=== PATIENT | female | born 1965 | race Caucasian/White ===

== ENCOUNTER → 2019-09-20 10:20 | Outpatient (CLI) | payer OTHER, SELFPAY ==
--- NOTE | 2019-09-20 | DI.MG.S_ITS ---
BILATERAL DIGITAL SCREENING MAMMOGRAM 3D/2D WITH CAD: 09/20/2019 CLINICAL: Routine screening. Family history of breast cancer. Comparison is made to exams dated: 05/23/2017 mammogram, 04/01/2016 mammogram, and 12/10/2015 mammogram - [facility]. There are scattered fibroglandular elements in both breasts. Current study was also evaluated with a Computer Aided Detection (CAD) system. There is a possible developing 0.7 cm oval asymmetry in the right breast middle depth central to the nipple seen on the mediolateral oblique view only. No other significant masses, calcifications, or other findings are seen in either breast. IMPRESSION: INCOMPLETE: NEEDS ADDITIONAL IMAGING EVALUATION The possible developing 0.7 cm oval asymmetry in the right breast is indeterminate. Additional views with possible ultrasound are recommended. This exam was interpreted at Station ID: [id number]. NOTE: For mammograms, a report in lay terms will be sent to the patient. Approximately 15% of breast malignancies will not be visualized mammographically. In the management of a palpable breast mass, a negative mammogram must not discourage biopsy of a clinically suspicious lesion. Electronically Signed By: Jerry Licona M.D. aty/:09/20/2019 12:53:17 letter sent: Additional Imaging Needed ACR BI-RADS Category 0: Incomplete 3340F
== END ==
PROVIDERS: PCP Family Medicine; Visit Provider Family Medicine
DX: Z12.31 Encounter for screening mammogram for malignant neoplasm of breast (principal); Z80.3 Family history of malignant neoplasm of breast
CPT/HCPCS: 77063; 77067

== ENCOUNTER → 2019-10-24 13:46 | Outpatient (CLI) | payer OTHER, SELFPAY ==
--- NOTE | 2019-10-24 | DI.MG.S_ITS ---
UNILATERAL RIGHT DIGITAL DIAGNOSTIC MAMMOGRAM 3D/2D WITH ADDITIONAL VIEWS: 10/24/2019 CLINICAL: Additional evaluation requested from prior study. Comparison is made to exams dated: 09/20/2019 mammogram, 05/23/2017 mammogram, and 04/01/2016 mammogram - Located [facility]. There are scattered fibroglandular elements in right breast. Previously noted 0.7 cm oval asymmetry in the right breast middle depth central to the nipple seen on the mediolateral oblique view onlyon comparison screening mammogram of 09/20/19 is less prominent on additional views, and may represent superimposed dense fibroglandular tissue. IMPRESSION: INCOMPLETE: NEEDS ADDITIONAL IMAGING EVALUATION Previously noted 0.7 cm oval asymmetry in the right breast middle depth central to the nipple seen on the mediolateral oblique view onlyon comparison screening mammogram of 09/20/19 is less prominent on additional views. A targeted ultrasound is recommended and will be performed immediately following this exam. This exam was interpreted at Station ID: [id number]. NOTE: For mammograms, a report in lay terms will be sent to the patient. Approximately 15% of breast malignancies will not be visualized mammographically. In the management of a palpable breast mass, a negative mammogram must not discourage biopsy of a clinically suspicious lesion. Electronically Signed By: Donald Siegel M.D. ecl/:10/24/2019 14:40:38 ACR BI-RADS Category 0: Incomplete 3340F
--- NOTE | 2019-10-24 | DI.US.S_ITS ---
LIMITED ULTRASOUND OF RIGHT BREAST AND AXILLA: 10/24/2019 CLINICAL: Patient returns today to evaluate an asymmetry in the right breast. Comparison is made to exams dated: 10/24/2019 mammogram, 09/20/2019 mammogram, 05/23/2017 ultrasound, 05/23/2017 mammogram, 04/01/2016 ultrasound, and 04/01/2016 mammogram - [facility]. Color flow ultrasound of the right breast 9-3 o'clock, retroareolar, and axilla regions was performed. Larson scale images of the real-time examination were reviewed. There is a 0.6 x 0.4 x 0.3 cm oval indistinct hypoechoic probable complicated cyst with increased through transmission/posterior acoustic enhancement, and no vascularity on Doppler ultrasound located in the right breast at 11:30 position 7 cm from the nipple. There is a 0.2 x 0.2 x 0.2 cm oval indistinct hypoechoic probable complicated cyst with increased through transmission/posterior acoustic enhancement, and no vascularity on Doppler ultrasound located in the right breast at 11:00 position 4 cm from the nipple. Targeted ultrasound of the right axillary demonstrates benign-appearing lymph nodes with no suspicious cortical thickening and preserved fatty concepcion. There is no evidence of right axillary lymphadenopathy by ultrasound. IMPRESSION: PROBABLY BENIGN 1) 0.6 x 0.4 x 0.3 cm probable complicated cyst in the right breast at 11:30 position 7 cm from the nipple. 2) 0.2 x 0.2 x 0.2 cm probable complicated cyst in the right breast at 11:00 position 4 cm from the nipple. 3) A follow-up mammogram and an ultrasound in 6 months is recommended to demonstrate stability of mammographic and sonographic findings. The patient is advised to monitor her breasts and to return sooner for re-evaluation should she feel anything grow or change. This exam was interpreted at Station ID: [id number]. Electronically Signed By: Donald Siegel M.D. ecl/:10/24/2019 15:24:18 letter sent: Followup Recommended Ultrasound BI-RADS: 3 Probably benign
== END ==
PROVIDERS: PCP Family Medicine; Visit Provider Family Medicine
DX: R92.8 Other abnormal and inconclusive findings on diagnostic imaging of breast (principal); N64.89 Other specified disorders of breast
CPT/HCPCS: 76642; 77065; G0279

== ENCOUNTER → 2020-09-07 11:58 | Outpatient (CLI) | payer OTHER, SELFPAY ==
--- NOTE | 2020-09-07 | DI.MG.S_ITS ---
BILATERAL DIGITAL DIAGNOSTIC MAMMOGRAM 3D/2D: 09/07/2020 CLINICAL: Late short follow up. Comparison is made to exams dated: 10/24/2019 ultrasound, 10/24/2019 mammogram, 09/20/2019 mammogram, 05/23/2017 ultrasound, 05/23/2017 ultrasound, and 05/23/2017 mammogram - [facility]. There are scattered fibroglandular elements in both breasts. Previously noted 0.7 cm oval asymmetry in the right breast middle depth central to the nipple seen on the mediolateral oblique view onlyon comparison screening mammogram of 09/20/19 is less prominent on additional views, and may represent superimposed dense fibroglandular tissue. No other significant masses, calcifications, or other findings are seen in either breast. IMPRESSION: BENIGN Previously noted 0.7 cm oval asymmetry in the right breast middle depth central to the nipple seen on the mediolateral oblique view onlyon comparison screening mammogram of 09/20/19 is less prominent on additional views. There is no mammographic evidence of malignancy. Return to annual mammogram screening schedule is recommended. This exam was interpreted at Station ID: [id number]. NOTE: For mammograms, a report in lay terms will be sent to the patient. Approximately 15% of breast malignancies will not be visualized mammographically. In the management of a palpable breast mass, a negative mammogram must not discourage biopsy of a clinically suspicious lesion. Electronically Signed By: Gato Isaac acr/:09/07/2020 13:18:07 letter sent: Normal Exam ACR BI-RADS Category 2: Benign Finding(s) 3342F
== END ==
PROVIDERS: PCP Family Medicine; Referring Provider Family Medicine; Visit Provider Family Medicine
DX: R92.8 Other abnormal and inconclusive findings on diagnostic imaging of breast (principal)
CPT/HCPCS: 77066; G0279

== ENCOUNTER → 2021-03-04 08:34 | Outpatient (CLI) | payer OTHER, SELFPAY ==
[2021-03-04 21:08] LABS: Hemoglobin A1C% w Est Avg Glu 8.7 % (4.0-6.0)
== END ==
PROVIDERS: PCP Family Medicine; Visit Provider Family Medicine
DX: E11.65 Type 2 diabetes mellitus with hyperglycemia (principal); Z97.4 Presence of external hearing-aid; I10 Essential (primary) hypertension
CPT/HCPCS: 83036

== ENCOUNTER → 2021-12-01 08:21 | Outpatient (CLI) | payer OTHER, SELFPAY ==
[2021-12-01 19:21] LABS: Add Manual Diff / Slide Review NO; Basophils Absolute Auto 100 /uL (0-100); Basophils Percent Auto 0.7 % (0-2); Eosinophils Absolute Auto 300 /uL (0-450); Eosinophils Percent Auto 3.3 % (2-4); Lymphocytes Absolute Auto 1900 /uL (1100-4500); Lymphocytes Percent Auto 23.1 % (25-40); Mean Corpuscular HGB Conc 33.4 % (30-36); Mean Corpuscular Hemoglobin 28.3 PG (26-34); Mean Corpuscular Volume 84.7 fL (80-100); Monocytes Absolute Auto 800 /uL (0-900); Monocytes Percent Auto 9.1 % (3-14); Neutrophils Absolute Auto 5300 /uL (1500-7000); Neutrophils Percent Auto 63.8 % (50-75); Platelet Count 346 X10^3/uL (150-400); Red Cell Distribution Width 12.8 % (11.6-14.8); White Blood Cell Count 8.3 X10^3/uL (4.5-11.0)
[2021-12-01 19:36] LABS: Alanine Aminotransferase 31 IU/L (<35); Albumin Globulin Ratio 1.5 (1.0-2.8); Alkaline Phosphatase 107 U/L (38-126); Aspartate Aminotransferase 24 IU/L (14-36); BUN Creatinine Ratio 16.3 (6-22); Bilirubin Total 0.5 mg/dL (0.2-1.3); Blood Urea Nitrogen 13 mg/dL (7-17); Calcium 9.5 mg/dL (8.4-10.2); Carbon Dioxide 30 mmol/L (22-32); Chloride 104 mmol/L (98-107); Cholesterol 167 mg/dL (140-199); Estimated Glomerular Filt Rate > 60.0 mL/min (>60); Globulin 2.6 g/dL (1.7-4.1); Glucose 137 mg/dL (70-100); HDL Cholesterol 44 mg/dL (40-60); HEMOLYSIS < 15 (0-50); LDL Cholesterol Calculated 83 mg/dL (<100); Potassium 4.7 mmol/L (3.4-5.1); Sodium 140 mmol/L (137-145); Total Protein 6.6 g/dL (6.3-8.2); Triglycerides 199 mg/dL (35-150)
[2021-12-01 19:39] LABS: Hemoglobin A1C% w Est Avg Glu 10.9 % (4.0-6.0)
[2021-12-01 20:06] LABS: TSH w/ Reflex to FT4 3.54 uIU/mL (0.47-4.68)
[2021-12-03 09:01] LABS: Cholesterol, Total 167 mg/dL (100-199); HDL-Cholesterol 44 mg/dL (>39); HDL-Particle (Total) 29.3 umol/L (>=30.5); LDL Particle 1182 nmol/L (<1000); LDL Size 20.2 nm (>20.5); LDL-Cholsterol 91 mg/dL (0-99); LP-IR Score 75 (<=45); Small LDL- Particle 750 nmol/L (<=527); Triglycerides 188 mg/dL (0-149)
== END ==
PROVIDERS: Internal Medicine Cardiovascular Disease; PCP Physician Assistant; Visit Provider Physician Assistant
DX: E11.9 Type 2 diabetes mellitus without complications (principal); E78.01 Familial hypercholesterolemia; I25.2 Old myocardial infarction; R53.83 Other fatigue; Z79.4 Long term (current) use of insulin; E78.2 Mixed hyperlipidemia
CPT/HCPCS: 80053; 80061; 83036; 83704; 84443; 85025

== ENCOUNTER → 2022-03-03 08:55 | Outpatient (CLI) | payer OTHER, SELFPAY | PROVIDERS: PCP Physician Assistant; Visit Provider Physician Assistant | DX: E11.9 Type 2 diabetes mellitus without complications (principal); Z79.4 Long term (current) use of insulin | CPT/HCPCS: 83036 ==

== ENCOUNTER → 2022-05-25 10:27 | Outpatient (CLI) | payer OTHER, SELFPAY ==
--- NOTE | 2022-05-25 10:28 | DI.MG.S_ITS ---
BILATERAL DIGITAL SCREENING MAMMOGRAM 3D/2D WITH CAD: 05/25/2022 CLINICAL: Routine screening. Family history of breast cancer. Comparison is made to exams dated: 09/07/2020 mammogram, 09/20/2019 mammogram, and 12/10/2015 mammogram - [facility]. There are scattered fibroglandular elements in both breasts. Current study was also evaluated with a Computer Aided Detection (CAD) system. No significant masses, calcifications, or other findings are seen in either breast. There has been no significant interval change. IMPRESSION: NEGATIVE There is no mammographic evidence of malignancy. A 1 year screening mammogram is recommended. Based on the Tyrer Cuzick model (a risk assessment model) the patient's lifetime risk is 9.3% and her 10 year risk is 3.0%. According to the ACR, ACS, and NCCN guidelines, an annual breast MRI exam along with mammogram is recommended if the patient's lifetime risk is 20% or greater. This exam was interpreted at Station ID: [id number]. NOTE: For mammograms, a report in lay terms will be sent to the patient. Approximately 15% of breast malignancies will not be visualized mammographically. In the management of a palpable breast mass, a negative mammogram must not discourage biopsy of a clinically suspicious lesion. Electronically Signed By: José ryder/seven:05/25/2022 12:45:33 letter sent: Normal Exam ACR BI-RADS Category 1: Negative 3341F
== END ==
PROVIDERS: PCP Physician Assistant; Referring Provider Physician Assistant; Visit Provider Physician Assistant
DX: Z12.31 Encounter for screening mammogram for malignant neoplasm of breast (principal); Z80.3 Family history of malignant neoplasm of breast
CPT/HCPCS: 77063; 77067

== ENCOUNTER → 2022-07-05 15:04 | Outpatient (CLI) | payer OTHER, SELFPAY ==
[2022-07-05 20:04] LABS: Hemoglobin A1C% w Est Avg Glu 6.4 % (4.0-6.0)
== END ==
PROVIDERS: Nurse Practitioner Adult Health; PCP Physician Assistant; Visit Provider Physician Assistant
DX: E11.9 Type 2 diabetes mellitus without complications (principal); Z79.4 Long term (current) use of insulin; B37.3 Candidiasis of vulva and vagina
CPT/HCPCS: 83036; 87798; 87801

== ENCOUNTER → 2022-09-19 13:04 | Outpatient (CLI) | payer OTHER, SELFPAY ==
[2022-09-19 19:29] LABS: Add Manual Diff / Slide Review NO; Basophils Absolute Auto 100 /uL (0-100); Basophils Percent Auto 1.4 % (0-2); Eosinophils Absolute Auto 200 /uL (0-450); Eosinophils Percent Auto 3.3 % (2-4); Hematocrit 37.5 % (36-46); Hemoglobin 12.8 g/dL (12.0-16.0); Lymphocytes Absolute Auto 1700 /uL (1100-4500); Lymphocytes Percent Auto 29.7 % (25-40); Mean Corpuscular HGB Conc 34.3 % (30-36); Mean Corpuscular Hemoglobin 29.2 PG (26-34); Mean Corpuscular Volume 85.2 fL (80-100); Monocytes Absolute Auto 800 /uL (0-900); Monocytes Percent Auto 13.7 % (3-14); Neutrophils Absolute Auto 2900 /uL (1500-7000); Neutrophils Percent Auto 51.9 % (50-75); Platelet Count 319 X10^3/uL (150-400); Red Cell Distribution Width 12.8 % (11.6-14.8); White Blood Cell Count 5.7 X10^3/uL (4.5-11.0)
[2022-09-19 19:33] LABS: Alanine Aminotransferase 36 IU/L (<35); Albumin Globulin Ratio 1.4 (1.0-2.8); Alkaline Phosphatase 121 U/L (38-126); Aspartate Aminotransferase 21 IU/L (14-36); BUN Creatinine Ratio 18.8 (6-22); Bilirubin Total 0.3 mg/dL (0.2-1.3); Blood Urea Nitrogen 15 mg/dL (7-17); Carbon Dioxide 28 mmol/L (22-32); Chloride 101 mmol/L (98-107); Estimated Glomerular Filt Rate > 60 mL/min (>60); Globulin 2.9 g/dL (1.7-4.1); Glucose 173 mg/dL (70-100); HEMOLYSIS < 15 (0-50); Potassium 4.2 mmol/L (3.4-5.1); Sodium 140 mmol/L (137-145); Total Protein 6.9 g/dL (6.3-8.2)
[2022-09-19 20:05] LABS: Hemoglobin A1C% w Est Avg Glu 6.7 % (4.0-6.0)
[2022-09-19 20:24] LABS: Vitamin B12 257 pg/mL (239-931)
== END ==
PROVIDERS: PCP Physician Assistant; Visit Provider Physician Assistant
DX: R20.2 Paresthesia of skin (principal); M54.50 Low back pain, unspecified
CPT/HCPCS: 80053; 82607; 83036; 85025

== ENCOUNTER → 2023-02-16 14:28 | Outpatient (CLI) | payer OTHER, SELFPAY ==
[2023-02-16 20:10] LABS: Add Manual Diff / Slide Review NO; Basophils Absolute Auto 100 /uL (0-100); Basophils Percent Auto 0.9 % (0-2); Eosinophils Absolute Auto 200 /uL (0-450); Eosinophils Percent Auto 2.9 % (2-4); Hemoglobin 13.5 g/dL (12.0-16.0); Lymphocytes Absolute Auto 1900 /uL (1100-4500); Mean Corpuscular HGB Conc 34.6 % (30-36); Mean Corpuscular Hemoglobin 29.4 PG (26-34); Mean Corpuscular Volume 84.8 fL (80-100); Monocytes Absolute Auto 800 /uL (0-900); Monocytes Percent Auto 9.5 % (3-14); Neutrophils Absolute Auto 5600 /uL (1500-7000); Neutrophils Percent Auto 64.7 % (50-75); Platelet Count 349 X10^3/uL (150-400); Red Cell Distribution Width 12.7 % (11.6-14.8); White Blood Cell Count 8.7 X10^3/uL (4.5-11.0)
[2023-02-16 20:20] LABS: Alanine Aminotransferase 30 IU/L (<35); Albumin 4.3 g/dL (3.5-5.0); Albumin Globulin Ratio 1.5 (1.0-2.8); Alkaline Phosphatase 116 U/L (38-126); Aspartate Aminotransferase 20 IU/L (14-36); Bilirubin Total 0.4 mg/dL (0.2-1.3); Blood Urea Nitrogen 18 mg/dL (7-17); Calcium 9.2 mg/dL (8.4-10.2); Carbon Dioxide 29 mmol/L (22-32); Chloride 102 mmol/L (98-107); Estimated Glomerular Filt Rate > 60 mL/min (>60); Globulin 2.8 g/dL (1.7-4.1); Glucose 152 mg/dL (70-100); HEMOLYSIS < 15 (0-50); Lipase 135 U/L (23-300); Potassium 4.8 mmol/L (3.4-5.1); Sodium 139 mmol/L (137-145); Total Protein 7.1 g/dL (6.3-8.2)
== END ==
PROVIDERS: PCP Physician Assistant; Visit Provider Physician Assistant
DX: E11.9 Type 2 diabetes mellitus without complications (principal); F32.9 Major depressive disorder, single episode, unspecified; R10.9 Unspecified abdominal pain
CPT/HCPCS: 80053; 83690; 85025

== ENCOUNTER 2023-03-01 14:56 | Emergency (ER) | payer OTHER, SELFPAY ==
[2023-03-01 15:15] VITALS: BP 137/78; PULSE 86; RESP 18; TEMP 36.6; O2SAT 98; BMI 43.9
--- NOTE | 2023-03-01 16:33 | ED_ITS ---
HPI - Eye Problem <Aldo Walker PA-C - Last Filed: 03/01/23 18:55> General Chief complaint: Eye Problems Stated complaint: eye dr ref/rt eye problems wants corotid checked Time Seen by Provider: 03/01/23 15:29 Source: patient Mode of arrival: Ambulatory History of Present Illness HPI Narrative: This is a 58-year-old female presents emergency department due to her eye doctor being concerned that her carotid artery maybe occluded causing her visual issues. She reports having little white dots and lytes tracking across the right side of the right eye visual field. Patient states that this is happened for the last week or so. She states that she has these episodes 5 to 7 times a day. No changes in her vision. Denies any eye pain or discharge or any fevers. Patient states that this is not happened in the has. She does have a history of diabetes, hyperlipidemia as well as a ?heart attack? about 20 years ago where she has 2 stents placed. Takes a baby aspirin daily as well as a statin. Related Data Home Medications Medication Instructions Recorded Confirmed atorvastatin 80 mg tablet 80 mg PO BEDTIME 02/03/21 01/10/23 aspirin 81 mg tablet,delayed 81 mg PO DAILY 01/10/23 01/10/23 release insulin glargine 100 unit/mL (3 See Rx Instructions .Route .COMPLEX 01/10/23 01/10/23 mL) subcutaneous pen (Basaglar KwikPen U-100 Insulin) Previous Rx's Medication Instructions Recorded albuterol sulfate 90 mcg/actuation 2 puff inhalation QID PRN 08/20/21 aerosol inhaler shortness of breath or wheezing #8.5 grams lancets (Microlet Lancet) #300 ea 12/29/21 blood sugar diagnostic (Contour #300 ea 01/11/22 Next Test Strips) pen needle, diabetic 31 gauge x #300 ea 05/06/22 3/16 (Sure-Fine Pen [place]) montelukast 10 mg tablet See Rx Instructions .Route 09/06/22 .COMPLEX #90 tabs semaglutide 1 mg/dose (4 mg/3 mL) 1 mg (0.75 mL) SUBCUT QWEEK #3 mL 11/30/22 subcutaneous pen injector (Ozempic) lisinopril 2.5 mg tablet See Rx Instructions .Route 12/06/22 .COMPLEX #30 tabs oxybutynin chloride 5 mg See Rx Instructions .Route 12/06/22 tablet,extended release 24 hr .COMPLEX #30 tabs bupropion HCl 150 mg 24 hr tablet, 150 mg PO QAM #30 tabs 01/10/23 extended release (Wellbutrin XL) bupropion HCl 300 mg 24 hr tablet, 300 mg PO QAM #30 tabs 01/10/23 extended release (Wellbutrin XL) semaglutide 2 mg/dose (8 mg/3 mL) 2 mg (0.75 mL) SUBCUT QWEEK #3 mL 01/10/23 subcutaneous pen injector (Ozempic) Allergies Allergy/AdvReac Type Severity Reaction Status Date / Time No Known Drug Allergies Allergy Verified 09/06/22 16:05 Review of Systems <Aldo Walker PA-C - Last Filed: 03/01/23 18:55> Review of Systems Narrative: GENERAL: Denies chills, fatigue, malaise, fever, sweats. HEENT: Visual changes, Denies sinus pain, ear pain, sore throat, difficulty swallowing, dizziness. RESPIRATORY: Denies dyspnea, cough, wheezing, hemoptysis, sputum. CARDIOVASCULAR: Denies chest pain, palpitations, orthopnea, edema, GASTROINTESTINAL: Denies nausea, vomiting, abdominal pain, diarrhea, cons tipation, melena. : Denies dysuria, frequency, incontinence, hematuria, urinary retention. MUSCULOSKELETAL: denies weakness, joint pain, or bony pain SKIN: Denies rash, skin lesions, or other NEUROLOGIC: Denies weakness, headache, numbness, change in speech, confusion, seizures, incoordination. PSYCHIATRIC: No concerning psychosocial issues. 12 point review of systems is negative except for those stated above Patient History <Aldo Walker PA-C - Last Filed: 03/01/23 18:55> Medical History (Updated 03/01/23 @ 18:54 by Aldo Walker PA-C) Cervical cancer screening Encounter for screening for malignant neoplasm of colon Lymphadenopathy of left cervical region Old myocardial infarction Skin tag, acquired Superficial laceration of foot Wart viral Well woman exam with routine gynecological exam Social History marital status: unmarried,single details: adopted twins now 18 yo number of children: 2 lives independently: Yes education level: college occupational status: employed Previous occupational history: teacher on Smoking Status: Never smoker Smoking Status: Never smoker Substance Use Type: does not use Exam <Aldo Walker PA-C - Last Filed: 03/01/23 18:55> Narrative Exam Narrative: GENERAL: Well-developed patient, in mild distress. HEAD: Atraumatic. Normocephalic. EYES: Pupils equal round and reactive. Extraocular motions intact. No scleral icterus. No injection or drainage. Normal visual acuity exam. No changes in field of vision. ENT: Nose without bleeding, purulent drainage. Throat without erythema, tonsillar hypertrophy or exudate. Airway patent. NECK: Trachea midline. Non tender CARDIOVASCULAR: Regular rate and rhythm without murmurs, gallops, or rubs. RESPIRATORY: Clear to auscultation. Breath sounds equal bilaterally. No wheezes, rales, or rhonchi. GASTROINTESTINAL: Abdomen soft, non-tender, nondistended. EXTREMITIES: No edema or joint tenderness. BACK: Nontender without deformity or crepitance. No flank tenderness. NEURO: AOx3. Cranial nerves 2-12 intact SKIN: No rash or erythema of visible areas Initial Vital Signs Initial Vital Signs: Vital Signs Temperature 97.8 F 03/01/23 15:15 Pulse Rate 86 03/01/23 15:15 Respiratory Rate 18 03/01/23 15:15 Blood Pressure 137/78 03/01/23 15:15 Pulse Oximetry 98 03/01/23 15:15 Oxygen Delivery Method Room Air 03/01/23 15:15 <Vic Donato MD - Last Filed: 03/09/23 03:27> Initial Vital Signs Initial Vital Signs: Vital Signs Temperature 97.8 F 03/01/23 15:15 Pulse Rate 86 03/01/23 15:15 Respiratory Rate 18 03/01/23 15:15 Blood Pressure 137/78 03/01/23 15:15 Pulse Oximetry 98 03/01/23 15:15 Oxygen Delivery Method Room Air 03/01/23 15:15 Course <Aldo Walker PA-C - Last Filed: 03/01/23 18:55> Orders Ordered: ED Orders 03/01/23 16:58 CT angio head and neck Stat 03/01/23 17:11 CBC Auto Diff [Complete Blood Count AUTO DIFF] Stat CMP [Comprehensive Metabolic Panel] Stat Vital Signs Vital signs: Vital Signs - 8 hr 03/01/23 15:15 Temperature 97.8 F Pulse Rate 86 Respiratory Rate 18 Blood Pressure 137/78 Pulse Oximetry 98 Oxygen Delivery Method Room Air <Vic Donato MD - Last Filed: 03/09/23 03:27> Orders Ordered: ED Orders 03/01/23 16:58 CT angio head and neck Stat 03/01/23 17:11 CBC Auto Diff [Complete Blood Count AUTO DIFF] Stat CMP [Comprehensive Metabolic Panel] Stat Vital Signs Vital signs: Vital Signs - 8 hr 03/01/23 15:15 Temperature 97.8 F Pulse Rate 86 Respiratory Rate 18 Blood Pressure 137/78 Pulse Oximetry 98 Oxygen Delivery Method Room Air MDM - Eye Problem <Aldo Walker PA-C - Last Filed: 03/01/23 18:55> Lab Data 03/01/23 17:11 03/01/23 17:11 Labs: Lab Results 03/01/23 03/01/23 Range/Units 17:11 17:11 WBC 8.7 (4.5-11.0) X10^3/uL RBC 4.60 (4.0-5.2) X10^6/uL Hgb 13.4 (12.0-16.0) g/dL Hct 39.4 (36-46) % MCV 85.6 (80-100) fL MCH 29.1 (26-34) PG MCHC 34.1 (30-36) % RDW 12.7 (11.6-14.8) % Plt Count 343 (150-400) X10^3/uL Neut % (Auto) 64.9 (50-75) % Lymph % (Auto) 22.1 L (25-40) % [place] % (Auto) 9.8 (3-14) % Eos % (Auto) 2.1 (2-4) % Baso % (Auto) 1.1 (0-2) % Neut # (Auto) 5700 (6617-5824) /uL Lymph # (Auto) 1900 (8435-2879) /uL [place] # (Auto) 900 (0-900) /uL Eos # (Auto) 200 (0-450) /uL Baso # (Auto) 100 (0-100) /uL Sodium 137 (137-145) mmol/L Potassium 4.4 (3.4-5.1) mmol/L Chloride 101 (98-107) mmol/L Carbon Dioxide 31 (22-32) mmol/L BUN 15 (7-17) mg/dL Creatinine 0.91 (0.52-1.04) mg/dL Estimated GFR > 60 (>60) mL/min BUN/Creatinine Ratio 16.5 (6-22) Glucose 124 H (70-100) mg/dL Calcium 9.3 (8.4-10.2) mg/dL Total Bilirubin 0.7 (0.2-1.3) mg/dL AST 22 (14-36) IU/L ALT 32 (<35) IU/L Alkaline Phosphatase 135 H (38-126) U/L Total Protein 7.7 (6.3-8.2) g/dL Albumin 4.5 (3.5-5.0) g/dL Globulin 3.2 (1.7-4.1) g/dL Albumin/Globulin Ratio 1.4 (1.0-2.8) Imaging Data CTA - brain/neck: Radiologist's Impression: [address] [address] [address] Scan Report Signed Patient: Casi Martinez MR#: [id number] : 1965 Acct:[id number] Age/Sex: 58 / F Date of Service: 03/01/23 Loc: Accession Number: [id number] ?? Procedure: CT angio head and neck Ordering Provider: Aldo Walker P.A-C PROCEDURE:? CT ANGIO HEAD AND NECK ? INDICATIONS:? Flashing lights R visual field ? TECHNIQUE:? Pre-contrast 4.5 mm thick sections acquired from the foramen magnum to the vertex.? After the administration of intravenous contrast, 1 mm thick sections acquired from the aortic arch through the [place].? Post-contrast 4.5 mm thick sections then re- acquired from the foramen magnum to the vertex.? 3-dimensional yxwvomi-aktjwxehb-epabgxgjyl (MIP) and/or volume rendering reformats were acquired of the central intracranial vasculature and neck separately. For radiation dose reduction, the following was used:? automated exposure control, adjustment of mA and/or kV according to patient size.? ? COMPARISON:? None. ? FINDINGS:? Image quality:? Good ? CSF spaces: Basal cisterns are patent. Lateral ventricles are symmetric. Volume:? Vascular calcifications. Periventricular white matter disease is common ly seen with chronic microangiopathy. Volume loss is present. These findings are minimal ? Brain: No intracranial hemorrhage. Larson-white differentiation is grossly maintained. ? Craniofacial structures: No displaced fracture. Sinuses are clear. Orbits are intact. ? Anterior circulation: ICAs:? There are mild bilateral cavernous calcifications.? The proximal ophthalmic arteries are visible. ACAs: Normal and symmetric MCAs: Normal and symmetric AComm: No aneurysm Venous sinuses: patent ? Posterior circulation: Dominance: Equal Vertebral arteries:? Focal right intracranial vertebral artery moderate narrowing calcification. Basilar artery: Unremarkable PComms: No aneurysm stretching machine tender frame: Unremarkable ? NECK ANGIOGRAPHY Aortic arch and subclavian arteries: Normal flow, no aneurysm. CCAs: No stenosis, occlusion, or aneurysm. ICA origins (by NASCET criteria): No hemodynamically significant narrowing. ICAs:? No stenosis or occlusion.? Retropharyngeal course. ECAs: Origins are patent. Vertebral arteries: Unremarkable ? Soft tissues: No significant mass, aneurysm, or lymphadenopathy Lung apices:? Right lung granuloma.? No airspace consolidation in the apices. Bones: No acute or suspicious abnormality. ? IMPRESSION:? No high-grade stenosis or large vessel occlusion.? If there is high concern for intracranial pathology/infarct or orbit pathology, consider MRI. ? Any quantitative measurements of stenosis were performed using NASCET criteria.? ? ? Dictated by: Lai Owen M.D. on 03/01/2023 at 18:18 ? ? Approved by: Lai Owen M.D. on 03/01/2023 at 18:26 ? MDM Narrative Medical decision making narrative: MDM * differential diagnosis includes but not limited to arterial occlusion, retinal detachment, TIA, migraine * Prior records reviewed: History of ADHD and takes Adderall. History of type 2 diabetes. History of depression. History of ?heart attack? about 20 years ago where she would 2 stents placed is on daily aspirin as well as a statin.. * My lab interpretation: CBC and CMP unremarkable. * My imgaing interpretation: CTA head and neck showed no acute causes of the visual symptoms patient was describing. * Clinical Decision Rules/Scores evaluated: None * Independent discussions with: None ED Course: This is a 58-year-old female presenting to the emergency department referred by her cloth folder hand to rule out any kind of occlusion in her carotid or other arteries. CTA head and neck were or which were negative. Patient is not describing any visual deficits, eye pain, or any other symptoms that require further evaluation or workup. Recommended she follow up with the cloth folder hand and relay the results of the negative CTA. Shared Decision Making: Discussed plan with the patient who is comfortable with the plan. Social Considerations: None Disposition: Discharged to home <Vic Donato MD - Last Filed: 03/09/23 03:27> Lab Data Labs: Lab Results 03/01/23 03/01/23 Range/Units 17:11 17:11 WBC 8.7 (4.5-11.0) X10^3/uL RBC 4.60 (4.0-5.2) X10^6/uL Hgb 13.4 (12.0-16.0) g/dL Hct 39.4 (36-46) % MCV 85.6 (80-100) fL MCH 29.1 (26-34) PG MCHC 34.1 (30-36) % RDW 12.7 (11.6-14.8) % Plt Count 343 (150-400) X10^3/uL Neut % (Auto) 64.9 (50-75) % Lymph % (Auto) 22.1 L (25-40) % [place] % (Auto) 9.8 (3-14) % Eos % (Auto) 2.1 (2-4) % Baso % (Auto) 1.1 (0-2) % Neut # (Auto) 5700 (6198-3825) /uL Lymph # (Auto) 1900 (8598-0791) /uL [place] # (Auto) 900 (0-900) /uL Eos # (Auto) 200 (0-450) /uL Baso # (Auto) 100 (0-100) /uL Sodium 137 (137-145) mmol/L Potassium 4.4 (3.4-5.1) mmol/L Chloride 101 (98-107) mmol/L Carbon Dioxide 31 (22-32) mmol/L BUN 15 (7-17) mg/dL Creatinine 0.91 (0.52-1.04) mg/dL Estimated GFR > 60 (>60) mL/min BUN/Creatinine Ratio 16.5 (6-22) Glucose 124 H (70-100) mg/dL Calcium 9.3 (8.4-10.2) mg/dL Total Bilirubin 0.7 (0.2-1.3) mg/dL AST 22 (14-36) IU/L ALT 32 (<35) IU/L Alkaline Phosphatase 135 H (38-126) U/L Total Protein 7.7 (6.3-8.2) g/dL Albumin 4.5 (3.5-5.0) g/dL Globulin 3.2 (1.7-4.1) g/dL Albumin/Globulin Ratio 1.4 (1.0-2.8) Discharge Plan Departure Patient Disposition: Home Clinical Impression: Change in vision Activity Restrictions/Additional Instructions: Thank you for coming to the [facility] Emergency Department today. Your CTA neck were negative for any kind of blockages or clots in your arteries in your n moris. You may relate this information to your cloth folder hand and primary care provider. Please continue working with them to investigate the cause of the visual changes you were having I hope you feel better soon. Prescriptions: No Action (DME) lancets [Microlet Lancet] Misc See Rx Instructions .ROUTE .COMPLEX Qty: 300 0RF Dose Instruction: USE TO TEST BLOOD GLUCOSE THREE TIMES A DAY Rx Instructions: USE TO TEST BLOOD GLUCOSE THREE TIMES A DAY (DME) Contour Next Test Strips Strip See Rx Instructions .Route Qty: 300 4RF Rx Instructions: test up to 3 times a day (DME) pen needle, diabetic [Sure-Fine Pen [place]] 31 gauge x 3/16 needle See Rx Instructions .Route Qty: 300 3RF Rx Instructions: To test blood sugars up to 3 times a day montelukast 10 mg tablet See Rx Instructions .ROUTE .COMPLEX Qty: 90 1RF Dose Instruction: TAKE ONE TABLET BY MOUTH EVERY DAY Rx Instructions: TAKE ONE TABLET BY MOUTH EVERY DAY oxybutynin chloride 5 mg tablet extended release 24hr See Rx Instructions .ROUTE .COMPLEX Qty: 30 5RF Dose Instruction: TAKE ONE TABLET BY MOUTH EVERY DAY -- MAY INCREASE TO TWO TABLETS ONCE DAILY AFTER ONE WEEK IF NECESSARY Rx Instructions: TAKE ONE TABLET BY MOUTH EVERY DAY -- MAY INCREASE TO TWO TABLETS ONCE DAILY AFTER ONE WEEK IF NECESSARY lisinopril 2.5 mg tablet See Rx Instructions .ROUTE .COMPLEX Qty: 30 5RF Dose Instruction: TAKE ONE TABLET BY MOUTH EVERY DAY Rx Instructions: TAKE ONE TABLET BY MOUTH EVERY DAY atorvastatin 80 mg tablet 80 mg PO BEDTIME albuterol sulfate 90 mcg/actuation HFA aerosol inhaler 2 puff inhalation QID PRN (Reason: shortness of breath or wheezing) Qty: 8.5 3RF Ozempic 1 mg/dose (4 mg/3 mL) pen injector 1 mg SUBCUT QWEEK Qty: 3 5RF Ozempic 2 mg/dose (8 mg/3 mL) pen injector 2 mg SUBCUT QWEEK Qty: 3 2RF bupropion HCl [Wellbutrin XL] 150 mg tablet extended release 24 hr 150 mg PO QAM Qty: 30 0RF Rx Instructions: Use to taper - start 150mg qam x 1 week, then increase to 300mg (2 pills) qam and switch to next bottle bupropion HCl [Wellbutrin XL] 300 mg tablet extended release 24 hr 300 mg PO QAM Qty: 30 2RF Rx Instructions: Use 150mg x 1 week, then increase to 300mg qam aspirin 81 mg tablet,delayed release (DR/EC) 81 mg PO DAILY Basaglar KwikPen U-100 Insulin 100 unit/mL (3 mL) insulin pen See Rx Instructions .ROUTE .COMPLEX Dose Instruction: INJECT 60 UNITS SUBCUTANEOUSLY ONCE DAILY Rx Instructions: INJECT 30 UNITS SUBCUTANEOUSLY ONCE DAILY Referrals: Malika Lara PA-C [Primary Care Provider] - Stand Alone Forms: Patient Portal/API <Vic Donato MD - Last Filed: 03/09/23 03:27> [facility] Attending Ac Attestation: I was immediately available in the department for consultation. ?This documentation has been reviewed and I agree with assessment and plan. Supervised by Vic Donato MD
--- NOTE | 2023-03-01 16:58 | DI.CT.S_ITS ---
PROCEDURE: CT ANGIO HEAD AND NECK INDICATIONS: Flashing lights R visual field TECHNIQUE: Pre-contrast 4.5 mm thick sections acquired from the foramen magnum to the vertex. After the administration of intravenous contrast, 1 mm thick sections acquired from the aortic arch through the [place] of [place]. Post-contrast 4.5 mm thick sections then re-acquired from the foramen magnum to the vertex. 3-dimensional jqfancs-wgmrulxjg-zjcoiwkhud (MIP) and/or volume rendering reformats were acquired of the central intracranial vasculature and neck separately. For radiation dose reduction, the following was used: automated exposure control, adjustment of mA and/or kV according to patient size. COMPARISON: None. FINDINGS: Image quality: Good CSF spaces: Basal cisterns are patent. Lateral ventricles are symmetric. Volume: Vascular calcifications. Periventricular white matter disease is commonly seen with chronic microangiopathy. Volume loss is present. These findings are minimal Brain: No intracranial hemorrhage. Larson-white differentiation is grossly maintained. Craniofacial structures: No displaced fracture. Sinuses are clear. Orbits are intact. Anterior circulation: ICAs: There are mild bilateral cavernous calcifications. The proximal ophthalmic arteries are visible. ACAs: Normal and symmetric MCAs: Normal and symmetric AComm: No aneurysm Venous sinuses: patent Posterior circulation: Dominance: Equal Vertebral arteries: Focal right intracranial vertebral artery moderate narrowing calcification. Basilar artery: Unremarkable PComms: No aneurysm consultants intern: Unremarkable NECK ANGIOGRAPHY Aortic arch and subclavian arteries: Normal flow, no aneurysm. CCAs: No stenosis, occlusion, or aneurysm. ICA origins (by NASCET criteria): No hemodynamically significant narrowing. ICAs: No stenosis or occlusion. Retropharyngeal course. ECAs: Origins are patent. Vertebral arteries: Unremarkable Soft tissues: No significant mass, aneurysm, or lymphadenopathy Lung apices: Right lung granuloma. No airspace consolidation in the apices. Bones: No acute or suspicious abnormality. IMPRESSION: No high-grade stenosis or large vessel occlusion. If there is high concern for intracranial pathology/infarct or orbit pathology, consider MRI. Any quantitative measurements of stenosis were performed using NASCET criteria. Dictated by: Lai Owen M.D. on 03/01/2023 at 18:18 Approved by: Lai Owen M.D. on 03/01/2023 at 18:26
[2023-03-01 17:23] LABS: Add Manual Diff / Slide Review NO; Basophils Absolute Auto 100 /uL (0-100); Basophils Percent Auto 1.1 % (0-2); Eosinophils Absolute Auto 200 /uL (0-450); Eosinophils Percent Auto 2.1 % (2-4); Hematocrit 39.4 % (36-46); Hemoglobin 13.4 g/dL (12.0-16.0); Lymphocytes Absolute Auto 1900 /uL (1100-4500); Lymphocytes Percent Auto 22.1 % (25-40); Mean Corpuscular HGB Conc 34.1 % (30-36); Mean Corpuscular Hemoglobin 29.1 PG (26-34); Mean Corpuscular Volume 85.6 fL (80-100); Monocytes Absolute Auto 900 /uL (0-900); Monocytes Percent Auto 9.8 % (3-14); Neutrophils Absolute Auto 5700 /uL (1500-7000); Neutrophils Percent Auto 64.9 % (50-75); Platelet Count 343 X10^3/uL (150-400); Red Cell Distribution Width 12.7 % (11.6-14.8); White Blood Cell Count 8.7 X10^3/uL (4.5-11.0)
[2023-03-01 17:46] LABS: Alanine Aminotransferase 32 IU/L (<35); Albumin 4.5 g/dL (3.5-5.0); Albumin Globulin Ratio 1.4 (1.0-2.8); Alkaline Phosphatase 135 U/L (38-126); Aspartate Aminotransferase 22 IU/L (14-36); BUN Creatinine Ratio 16.5 (6-22); Bilirubin Total 0.7 mg/dL (0.2-1.3); Blood Urea Nitrogen 15 mg/dL (7-17); Calcium 9.3 mg/dL (8.4-10.2); Carbon Dioxide 31 mmol/L (22-32); Chloride 101 mmol/L (98-107); Estimated Glomerular Filt Rate > 60 mL/min (>60); Globulin 3.2 g/dL (1.7-4.1); Glucose 124 mg/dL (70-100); HEMOLYSIS < 15 (0-50); Potassium 4.4 mmol/L (3.4-5.1); Sodium 137 mmol/L (137-145); Total Protein 7.7 g/dL (6.3-8.2)
[2023-03-01 19:04] VITALS: BP 160/65; PULSE 78; RESP 18; O2SAT 100
== END 2023-03-01 19:05 | disposition home or self-care (01) ==
PROVIDERS: Emergency Provider Physician Assistant Medical; PCP Physician Assistant
DX: H53.9 Unspecified visual disturbance (principal); I25.2 Old myocardial infarction; Z95.5 Presence of coronary angioplasty implant and graft; Z79.899 Other long term (current) drug therapy
CPT/HCPCS: 36415; 70496; 70498; 80053; 85025; 99284; Q9967

== ENCOUNTER → 2023-05-30 13:57 | Outpatient (CLI) | payer OTHER, SELFPAY ==
[2023-05-30 19:49] LABS: Alanine Aminotransferase 36 IU/L (<35); Albumin 4.2 g/dL (3.5-5.0); Albumin Globulin Ratio 1.5 (1.0-2.8); Alkaline Phosphatase 124 U/L (38-126); Aspartate Aminotransferase 23 IU/L (14-36); BUN Creatinine Ratio 16.8 (6-22); Bilirubin Total 0.4 mg/dL (0.2-1.3); Blood Urea Nitrogen 16 mg/dL (7-17); Calcium 9.5 mg/dL (8.4-10.2); Carbon Dioxide 27 mmol/L (22-32); Chloride 104 mmol/L (98-107); Estimated Glomerular Filt Rate > 60 mL/min (>60); Gamma Glutamyl Transpeptidase 30 U/L (12-43); Globulin 2.8 g/dL (1.7-4.1); Glucose 136 mg/dL (70-100); HEMOLYSIS < 15 (0-50); Potassium 4.5 mmol/L (3.4-5.1); Sodium 139 mmol/L (137-145)
[2023-05-31 22:14] LABS: x Labcorp Estim. Avg Glu (eAG) 197 mg/dL (.); x Labcorp Hemoglobin A1c 8.5 % (4.8-5.6)
== END ==
PROVIDERS: PCP Physician Assistant; Visit Provider Physician Assistant
DX: E11.9 Type 2 diabetes mellitus without complications (principal); R74.8 Abnormal levels of other serum enzymes; Z79.4 Long term (current) use of insulin
CPT/HCPCS: 80053; 82977; 83036

== ENCOUNTER 2023-07-08 15:10 | Emergency (ER) | payer OTHER, SELFPAY ==
[2023-07-08 15:24] VITALS: BP 143/68; PULSE 81; RESP 18; TEMP 36.7; O2SAT 100; BMI 43.0
[2023-07-08 15:30] VITALS: PULSE 80
--- NOTE | 2023-07-08 16:40 | ED_ITS ---
HPI - Extremity Injury (Upper) <Sulma Nielsen PA-C - Last Filed: 07/08/23 16:56> General Chief Complaint: Extremity Injury, Upper Stated Complaint: painful right wrist Time Seen by Provider: 07/08/23 15:31 Source: patient Mode of arrival: Ambulatory History of Present Illness HPI narrative: Patient is a 58-year-old female who presents with right wrist pain. She was opening a jar of sauce 10 days ago when the pain started. She did not fall or have any trauma. She has a remote history of carpal tunnel-type pain. She has been wearing an gidy-vrf-fskflez brace. She is not taken any NSAIDs or used any ice. She has intermittent tingling in her 3rd and 4th fingers. 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 Related Data Home Medications Medication Instructions Recorded Confirmed aspirin 81 mg tablet,delayed 81 mg PO DAILY 01/10/23 06/13/23 release Previous Rx's Medication Instructions Recorded albuterol sulfate 90 mcg/actuation 2 puff inhalation QID PRN 08/20/21 aerosol inhaler shortness of breath or wheezing #8.5 grams lancets (Microlet Lancet) #300 ea 12/29/21 blood sugar diagnostic (Contour #300 ea 01/11/22 Next Test Strips) montelukast 10 mg tablet See Rx Instructions .Route 03/10/23 .COMPLEX #90 tabs bupropion HCl 300 mg 24 hr tablet, See Rx Instructions .Route 04/12/23 extended release .COMPLEX #90 tabs semaglutide 2 mg/dose (8 mg/3 mL) See Rx Instructions .Route 04/21/23 subcutaneous pen injector (Ozempic) .COMPLEX #3 mL pen needle, diabetic 31 gauge x #300 ea 05/09/2301/05 (BD Ultra-Fine Mini Pen Needle) atorvastatin 80 mg tablet 80 mg PO BEDTIME #90 tabs 05/18/23 oxybutynin chloride 5 mg 5 mg PO DAILY #30 tabs 06/12/23 tablet,extended release 24 hr dapagliflozin propanediol 10 mg 10 mg PO QAM #30 tabs 06/13/23 tablet (Farxiga) insulin glargine 100 unit/mL (3 See Rx Instructions .Route 06/13/23 mL) subcutaneous pen (Basaglar .COMPLEX #15 mL KwikPen U-100 Insulin) lisinopril 10 mg tablet 10 mg PO DAILY #30 tabs 06/13/23 semaglutide 0.25 mg or 0.5 mg (2 0.5 mg (0.736 mL) SUBCUT QWEEK #3 06/13/23 mg/3 mL) subcutaneous pen injector mL (Ozempic) ibuprofen 600 mg tablet 600 mg PO Q6H PRN pain #30 tabs 07/08/23 Allergies Allergy/AdvReac Type Severity Reaction Status Date / Time No Known Drug Allergies Allergy Verified 06/13/23 09:07 Review of Systems <Sulma Nielsen PA-C - Last Filed: 07/08/23 16:56> Review of Systems ROS Unobtainable: All systems reviewed & are unremarkable except as noted in HPI and below Patient History <Sulma Nielsen PA-C - Last Filed: 07/08/23 16:56> Medical History Cervical cancer screening Encounter for screening for malignant neoplasm of colon Lymphadenopathy of left cervical region Old myocardial infarction Skin tag, acquired Superficial laceration of foot Wart viral Well woman exam with routine gynecological exam Social History marital status: unmarried,single details: adopted twins now 18 yo number of children: 2 lives independently: Yes education level: college occupational status: employed Previous occupational history: teacher on [employer] Smoking Status: Never smoker Smoking Status: Never smoker Substance Use Type: does not use Exam <Sulma Nielsen PA-C - Last Filed: 07/08/23 16:56> Narrative Exam Narrative: GENERAL: 58 year old patient appears stated age. Well-developed patient, in no distress. NEURO: AOx3. HEAD: Atraumatic. Normocephalic. EYES: Pupils equal round and reactive. Extraocular motions intact. No scleral icterus. No injection or drainage. ENT: Nose without bleeding or purulent drainage. Airway patent. EXTREMITIES: Tenderness over the right wrist over the median nerve. Patient is able to flex and extend at the wrist with some discomfort, able to precipitate washer and abduct and adduct the fingers. Capillary refill is 2 seconds. No anatomic snuffbox tenderness. SKIN: No rash or erythema of visible areas Initial Vital Signs Initial Vital Signs: Vital Signs Temperature 98.1 F 07/08/23 15:24 Pulse Rate 81 07/08/23 15:24 Respiratory Rate 18 07/08/23 15:24 Blood Pressure 143/68 H 07/08/23 15:24 Pulse Oximetry 100 07/08/23 15:24 Oxygen Delivery Method Room Air 07/08/23 15:24 <Shahriar Hart DO - Last Filed: 07/08/23 17:34> Initial Vital Signs Initial Vital Signs: Vital Signs Temperature 98.1 F 07/08/23 15:24 Pulse Rate 81 07/08/23 15:24 Respiratory Rate 18 07/08/23 15:24 Blood Pressure 143/68 H 07/08/23 15:24 Pulse Oximetry 100 07/08/23 15:24 Oxygen Delivery Method Room Air 07/08/23 15:24 Course <Sulma Nielsen PA-C - Last Filed: 07/08/23 16:56> Vital Signs Vital signs: Vital Signs - 8 hr 07/08/23 15:24 07/08/23 15:30 Temperature 98.1 F Pulse Rate 81 Pulse Rate [Right Radial] 80 Respiratory Rate 18 Blood Pressure 143/68 H Pulse Oximetry 100 Oxygen Delivery Method Room Air <DO Hali Gonzales Last Filed: 07/08/23 17:34> Vital Signs Vital signs: Vital Signs - 8 hr 07/08/23 15:24 07/08/23 15:30 Temperature 98.1 F Pulse Rate 81 Pulse Rate [Right Radial] 80 Respiratory Rate 18 Blood Pressure 143/68 H Pulse Oximetry 100 Oxygen Delivery Method Room Air MDM - Extremity Injury (Upper) <Sulma Nielsen PA-C - Last Filed: 07/08/23 16:56> MDM Narrative Medical decision making narrative: Multiple etiologies for patient's symptoms considered including, but not limited to: Carpal tunnel, de Quervain tenosynovitis, fracture, scaphoid injury. No history of trauma to indicate need for x-rays. Suspect carpal tunnel syndrome. Advised conservative treatment to include NSAIDs, rest, ice, elevation. Follow up with Orthopedics if not improving after 4 weeks of conservative therapy. Patient's symptoms improved over duration of stay with above-stated therapies. Findings and discharge diagnosis discussed with patient/family followed by verbalization of understanding Return precautions discussed with patient/family whom verbalize understanding of diagnosis and plan Discharge Plan Departure Patient Disposition: Home Clinical Impression: Acute pain of right wrist Instructions: DI for Carpal Tunnel Syndrome, How to Perform Stretches for Carpal Tunnel Syndrome Activity Restrictions/Additional Instructions: * your right wrist pain is likely carpal tunnel syndrome. I suggest supportive conservative therapy with ibuprofen 600 mg every 6 hours, ice for 15 minutes every 1-2 hours while awake, wearing your brace, rest. As we discussed, I would consider dictation software in order to provide more time for your hand to rest. If your pain is not improved with 1 month of diligent conservative therapy, I would contact the Orthopedics office and ask for an appointment with the hand specialist. *What to do: *Please continue to take your regular medications as directed. [x] New medication prescriptions sent to your pharmacy: [facility]] [ ] New medication written as a paper prescription [ ] No new medications given *Please follow up with your primary care provider in 2-3 days, call for an appointment. Let them know you were seen in the Emergency Department and that we ask that you be seen in follow up. We will electronically transmit a record of today's note if your PCP is in our system *If you do not have a primary care provider please contact the [facility] Resource line at [phone]. They will ask some questions about your medical history and help get you set up with a doctor in the community. *Return to Emergency Department if you should have any new, worsening or concerning symptoms, such as [fever greater than 101 F, shaking chills, worsening pain, persistent vomiting or other concerning symptoms]. Prescriptions: New ibuprofen 600 mg tablet 600 mg PO Q6H PRN (Reason: pain) Qty: 30 0RF No Action (DME) lancets [Microlet Lancet] Misc See Rx Instructions .ROUTE .COMPLEX Qty: 300 0RF Dose Instruction: USE TO TEST BLOOD GLUCOSE THREE TIMES A DAY Rx Instructions: USE TO TEST BLOOD GLUCOSE THREE TIMES A DAY (DME) Contour Next Test Strips Strip See Rx Instructions .Route Qty: 300 4RF Rx Instructions: test up to 3 times a day montelukast 10 mg tablet See Rx Instructions .ROUTE .COMPLEX Qty: 90 1RF Dose Instruction: TAKE ONE TABLET BY MOUTH EVERY DAY Rx Instructions: TAKE ONE TABLET BY MOUTH EVERY DAY bupropion HCl 300 mg tablet extended release 24 hr See Rx Instructions .ROUTE .COMPLEX Qty: 90 3RF Dose Instruction: TAKE 150 MG DOSE FOR 7 DAYS THEN INCREASE TO 1 (300 MG) TABLET BY MOUTH ONCE DAILY IN THE MORNING Rx Instructions: TAKE 150 MG DOSE FOR 7 DAYS THEN INCREASE TO 1 (300 MG) TABLET BY MOUTH ONCE DAILY IN THE MORNING Ozempic 2 mg/dose (8 mg/3 mL) pen injector See Rx Instructions .ROUTE .COMPLEX Qty: 3 5RF Dose Instruction: INJECT 2 MG SUBCUTANEOUSLY ONCE EVERY WEEK Rx Instructions: INJECT 2 MG SUBCUTANEOUSLY ONCE EVERY WEEK (DME) pen needle, diabetic [BD Ultra-Fine Mini Pen Needle] 31 gauge x 3/16 needle See Rx Instructions .ROUTE .COMPLEX Qty: 300 3RF Dose Instruction: USE TO INJECT INSULIN ONCE DAILY DIRECTED Rx Instructions: USE TO INJECT INSULIN ONCE DAILY DIRECTED atorvastatin 80 mg tablet 80 mg PO BEDTIME Qty: 90 3RF oxybutynin chloride 5 mg tablet extended release 24hr 5 mg PO DAILY Qty: 30 5RF albuterol sulfate 90 mcg/actuation HFA aerosol inhaler 2 puff inhalation QID PRN (Reason: shortness of breath or wheezing) Qty: 8.5 3RF aspirin 81 mg tablet,delayed release (DR/EC) 81 mg PO DAILY Ozempic 0.25 mg or 0.5 mg (2 mg/3 mL) pen injector 0.5 mg SUBCUT QWEEK Qty: 3 5RF Farxiga 10 mg tablet 10 mg PO QAM Qty: 30 2RF Basaglar KwikPen U-100 Insulin 100 unit/mL (3 mL) insulin pen See Rx Instructions .ROUTE .COMPLEX Qty: 15 5RF Dose Instruction: INJECT 60 UNITS SUBCUTANEOUSLY ONCE DAILY Rx Instructions: INJECT 40 UNITS SUBCUTANEOUSLY ONCE DAILY lisinopril 10 mg tablet 10 mg PO DAILY Qty: 30 5RF Referrals: Malika Lara PA-C [Primary Care Provider] - Stand Alone Forms: Patient Portal/API <Shahriar Hart, - Last Filed: 07/08/23 17:34> Cosign ED Attending Cosignature Attestation: Dr Hart Co-Sign Statement: I was available for consultation during this patient's emergency department visit. This chart is signed by myself for administrative purposes only. I did not have direct contact with this patient during this visit. They were seen independently by the APC.
== END 2023-07-08 15:53 | disposition home or self-care (01) ==
PROVIDERS: Emergency Provider Physician Assistant; PCP Physician Assistant
DX: M25.531 Pain in right wrist (principal); X58.XXXA Exposure to other specified factors, initial encounter
CPT/HCPCS: 99281

== ENCOUNTER → 2024-01-08 08:00 | Outpatient (CLI) | payer OTHER, SELFPAY ==
[2024-01-08 19:47] LABS: Alanine Aminotransferase 37 IU/L (<35); Albumin 3.8 g/dL (3.5-5.0); Albumin Globulin Ratio 1.4 (1.0-2.8); Alkaline Phosphatase 115 U/L (38-126); Aspartate Aminotransferase 23 IU/L (14-36); Bilirubin Total 0.6 mg/dL (0.2-1.3); Blood Urea Nitrogen 15 mg/dL (7-17); Calcium 9.1 mg/dL (8.4-10.2); Carbon Dioxide 27 mmol/L (22-32); Chloride 107 mmol/L (98-107); Cholesterol 180 mg/dL (140-199); Estimated Glomerular Filt Rate > 60 mL/min (>60); Globulin 2.7 g/dL (1.7-4.1); Glucose 162 mg/dL (70-100); HDL Cholesterol 50 mg/dL (40-60); HEMOLYSIS < 15 (0-50); LDL Cholesterol Calculated 90 mg/dL (<100); Potassium 5.1 mmol/L (3.4-5.1); Sodium 139 mmol/L (137-145); Total Protein 6.5 g/dL (6.3-8.2); Triglycerides 198 mg/dL (35-150)
[2024-01-08 19:57] LABS: Hemoglobin A1C% w Est Avg Glu 7.5 % (4.0-6.0)
[2024-01-08 20:11] LABS: Creatinine Urine Random 133.2 mg/dL
[2024-01-08 20:13] LABS: Microalbumi Creatinin Ratio Ur 4.5 ug/mg CR (<30); Microalbumin Urine Random 0.6 mg/dL (0-1.6)
== END ==
PROVIDERS: PCP Family Medicine; Visit Provider Physician Assistant Medical
DX: E11.9 Type 2 diabetes mellitus without complications (principal); Z79.4 Long term (current) use of insulin
CPT/HCPCS: 80053; 80061; 82043; 82570; 83036

== ENCOUNTER → 2024-08-09 10:12 | Outpatient (CLI) | payer OTHER, SELFPAY ==
--- NOTE | 2024-08-09 10:13 | DI.MG.S_ITS ---
BILATERAL DIGITAL SCREENING MAMMOGRAM 3D/2D WITH CAD: 08/09/2024 CLINICAL: Routine screening. Family history of breast cancer. Comparison is made to exams dated: 05/25/2022 mammogram, 09/07/2020 mammogram, and 09/20/2019 mammogram - [facility]. There are scattered areas of fibroglandular density (category b / 25%-50% glandular tissue). Current study was also evaluated with a Computer Aided Detection (CAD) system. No significant masses, calcifications, or other findings are seen in either breast. There has been no significant interval change. IMPRESSION: NEGATIVE There is no mammographic evidence of malignancy. A 1 year screening mammogram is recommended. Based on the Tyrer Cuzick model (a risk assessment model) the patient's lifetime risk is 9.0% and her 10 year risk is 3.3%. According to the ACR, ACS, and NCCN guidelines, an annual breast MRI exam along with mammogram is recommended if the patient's lifetime risk is 20% or greater. This exam was interpreted at Station ID: [id number]. NOTE: For mammograms, a report in lay terms will be sent to the patient. Approximately 15% of breast malignancies will not be visualized mammographically. In the management of a palpable breast mass, a negative mammogram must not discourage biopsy of a clinically suspicious lesion. Electronically Signed By: Leisa Julien M.D., Ph.D. messi/seven:08/10/2024 00:34:04 letter sent: Normal Exam ACR BI-RADS Category 1: Negative
== END ==
PROVIDERS: PCP Family Medicine; Referring Provider Family Medicine; Visit Provider Family Medicine
DX: Z12.31 Encounter for screening mammogram for malignant neoplasm of breast (principal); Z80.3 Family history of malignant neoplasm of breast
CPT/HCPCS: 77063; 77067

== ENCOUNTER → 2024-12-27 08:02 | Outpatient (CLI) | payer OTHER, SELFPAY ==
[2024-12-27 18:16] LABS: Add Manual Diff / Slide Review NO; Basophils Absolute Auto 100 /uL (0-100); Basophils Percent Auto 0.9 % (0-2); Eosinophils Absolute Auto 200 /uL (0-450); Hemoglobin 13.8 g/dL (12.0-16.0); Lymphocytes Absolute Auto 1800 /uL (1100-4500); Lymphocytes Percent Auto 23.1 % (25-40); Mean Corpuscular HGB Conc 33.6 % (30-36); Mean Corpuscular Hemoglobin 29.4 PG (26-34); Mean Corpuscular Volume 87.6 fL (80-100); Monocytes Absolute Auto 600 /uL (0-900); Monocytes Percent Auto 8.3 % (3-14); Neutrophils Absolute Auto 5000 /uL (1500-7000); Neutrophils Percent Auto 64.7 % (50-75); Platelet Count 327 X10^3/uL (150-400); Red Blood Cell Count 4.68 X10^6/uL (4.0-5.2); White Blood Cell Count 7.8 X10^3/uL (4.5-11.0)
[2024-12-27 18:20] LABS: Alanine Aminotransferase 58 IU/L (<35); Albumin 4.2 g/dL (3.5-5.0); Albumin Globulin Ratio 1.6 (1.0-2.8); Alkaline Phosphatase 120 U/L (38-126); Aspartate Aminotransferase 33 IU/L (14-36); BUN Creatinine Ratio 18.6 (6-22); Bilirubin Total 0.7 mg/dL (0.2-1.3); Blood Urea Nitrogen 18 mg/dL (7-17); Calcium 9.4 mg/dL (8.4-10.2); Carbon Dioxide 23 mmol/L (22-32); Chloride 104 mmol/L (98-107); Cholesterol 209 mg/dL (140-199); Estimated Glomerular Filt Rate > 60 mL/min (>60); Globulin 2.6 g/dL (1.7-4.1); Glucose 163 mg/dL (70-100); HDL Cholesterol 46 mg/dL (40-60); HEMOLYSIS < 15 (0-50); LDL Cholesterol Calculated 106 mg/dL (<100); Potassium 4.6 mmol/L (3.4-5.1); Sodium 138 mmol/L (137-145); Total Protein 6.8 g/dL (6.3-8.2); Triglycerides 285 mg/dL (35-150)
[2024-12-27 18:50] LABS: Thyroid Stimulating Hormone 2.77 uIU/mL (0.47-4.68)
== END ==
PROVIDERS: PCP Family Medicine; Visit Provider Family Medicine
DX: I25.10 Atherosclerotic heart disease of native coronary artery without angina pectoris (principal); E66.01 Morbid (severe) obesity due to excess calories; Z68.41 Body mass index [BMI] 40.0-44.9, adult; E11.9 Type 2 diabetes mellitus without complications; Z79.4 Long term (current) use of insulin; I10 Essential (primary) hypertension; I25.2 Old myocardial infarction
CPT/HCPCS: 80053; 80061; 84443; 85025

== ENCOUNTER → 2025-01-16 16:38 | Outpatient (CLI) | payer OTHER, SELFPAY ==
[2025-01-17 20:20] LABS: Creatinine Urine Random 93.06 mg/dL
[2025-01-17 20:31] LABS: Microalbumin Urine Random < 0.6 mg/dL (0-1.6)
== END ==
LOC: LAB 16:38
PROVIDERS: PCP Family Medicine; Visit Provider Family Medicine
DX: E11.9 Type 2 diabetes mellitus without complications (principal); Z79.4 Long term (current) use of insulin
CPT/HCPCS: 82043; 82570

== ENCOUNTER → 2025-08-19 14:04 | Outpatient (CLI) | payer OTHER, SELFPAY ==
[2025-08-19 18:56] LABS: HEMOLYSIS < 15 (0-50); Iron 85 ug/dL (37-170)
[2025-08-19 18:57] LABS: Hematocrit 41.2 % (36-46); Hemoglobin 13.8 g/dL (12.0-16.0); Mean Corpuscular HGB Conc 33.6 % (30-36); Mean Corpuscular Hemoglobin 29.6 PG (26-34); Mean Corpuscular Volume 87.9 fL (80-100); Platelet Count 330 X10^3/uL (150-400)
[2025-08-19 18:58] LABS: Hemoglobin A1C% w Est Avg Glu 7.2 % (4.0-6.0)
[2025-08-19 19:03] LABS: Alanine Aminotransferase 50 IU/L (<35); Albumin 4.5 g/dL (3.5-5.0); Albumin Globulin Ratio 1.7 (1.0-2.8); Alkaline Phosphatase 90 U/L (38-126); Blood Urea Nitrogen 22 mg/dL (7-17); Calcium 9.4 mg/dL (8.4-10.2); Carbon Dioxide 29 mmol/L (22-32); Chloride 101 mmol/L (98-107); Estimated Glomerular Filt Rate > 60 mL/min (>60); Globulin 2.6 g/dL (1.7-4.1); Glucose 221 mg/dL (70-99); HEMOLYSIS < 15 (0-50); Potassium 4.7 mmol/L (3.4-5.1); Sodium 138 mmol/L (137-145); Total Protein 7.1 g/dL (6.3-8.2)
[2025-08-19 19:15] LABS: Percent Iron Saturation 25 % (15-50); Total Iron Binding Capacity 339 ug/dL (265-497); Transferrin 320 mg/dL (206-381)
[2025-08-19 19:18] LABS: Vitamin D 25 Hydroxy (D3) 13.3 ng/mL (30.0-100.0)
[2025-08-19 19:35] LABS: Ferritin 138 ng/mL (11-264)
[2025-08-19 19:49] LABS: Vitamin B12 283 pg/mL (239-931)
[2025-08-20 03:08] LABS: Hepatitis A Antibody IgM Negative (Negative); Hepatitis B Core Antibody IgM Negative (Negative); Hepatitis C Antibody Non Reactive (Non Reactive)
== END ==
PROVIDERS: PCP Family Medicine; Visit Provider Family Medicine
DX: E66.01 Morbid (severe) obesity due to excess calories (principal); Z68.41 Body mass index [BMI] 40.0-44.9, adult; E11.9 Type 2 diabetes mellitus without complications; Z79.4 Long term (current) use of insulin; I10 Essential (primary) hypertension; G47.33 Obstructive sleep apnea (adult) (pediatric); I25.10 Atherosclerotic heart disease of native coronary artery without angina pectoris; Z83.49 Family history of other endocrine, nutritional and metabolic diseases; R79.89 Other specified abnormal findings of blood chemistry
CPT/HCPCS: 80053; 80074; 82306; 82607; 82728; 83036; 83540; 83550; 85027; 86038

== ENCOUNTER → 2025-09-29 09:00 | Outpatient (CLI) | payer OTHER, SELFPAY ==
[2025-09-29 18:53] LABS: Cholesterol 159 mg/dL (140-199); HDL Cholesterol 56 mg/dL (40-60); Triglycerides 144 mg/dL (35-150)
== END ==
PROVIDERS: PCP Family Medicine; Visit Provider Family Medicine
DX: E11.59 Type 2 diabetes mellitus with other circulatory complications (principal)
CPT/HCPCS: 80061